=== PATIENT | female | born 1980 | race Caucasian/White ===

== ENCOUNTER → 2016-07-20 | Outpatient (CLI) | payer MEDICAID ==
--- NOTE | 2016-07-20 17:50 | US ---
Complete Obstetric Ultrasound July 20, 2016 at 1416 hours Indication: G2, P1, female. Evaluate size and dates. The estimated gestational age by LMP is 19 we eks and 2 days yielding an EDC of [December 12, 2016]. Comparison: None available. Findings Number: 1. Presentation: Breech. Placental location: Posterior. Cervix: 3.7 cm. Maximum vertical pocket: 4.0 cm. heart rate: 138 bpm. Ovaries: Not visualized today. Biometry: Biparietal diameter: 46 mm = 20 weeks, 1 day. Head circumference: 174 mm = 20 weeks, 0 days. Abdominal circumference: 141 mm = 19 weeks, 4 days. Femur length: 29.9 mm = 19 weeks, 2 days. Humerus length: 28.6 mm = 19 weeks, 2 days. Transcerebellar diameter: 20.2 mm = 19 weeks, 3 days. HC/AC: 1.23 (1.09 - 1.26). FL/BPD: 65%. FL/AC: 21%. Average ultrasound age: 19 weeks, 6 days. EDC based on today's average ultrasound age: [December 08, 2016]. Estimated weight is 294 grams, +/- 43 grams. The estimated weight is at the 56th percent ile based on previous dating. Anatomy Survey: Supratentorial brain: Normal. Posterior fossa: Normal. Spine: Normal. Nuchal fold: Normal. 3.77 mm. Nose and lips: Normal. Facial profile: Normal. Heart: Four-chamber heart. Intact interventricular septum. Cardiac outflow tracts: Normal. Stomach: Normal. Umbilical cord insertion: Normal. Kidneys: Normal, no pyelectasis. Bladder: Normal. Number of cord vessels: Three. Upper extremities: Normal. Lower extremities: Normal. Impressions 1. Living castellanos in breech presentation. Size concordant with dates. The estimated ge stational age by biometry is 19 weeks and 6 days yielding an EDC of December 08, 2016. The estimate d gestational age by LMP is 19 weeks and 2 days. 2. Unremarkable anatomy. No anomalies detected. E:SID/jr
== END ==
LOC: FIMAGING 14:01
PROVIDERS: ATTEND Family Medicine
DX: Z34.82 Encounter for supervision of other normal pregnancy, second trimester (principal); Z3A.19 19 weeks gestation of pregnancy

== ENCOUNTER → 2017-02-04 | Outpatient (CLI) | payer MEDICAID | LOC: FIMAGING 07:27 | PROVIDERS: ATTEND Family Medicine | DX: K76.89 Other specified diseases of liver (principal) ==

== ENCOUNTER 2017-11-07 22:28 | Emergency (ER) | payer MEDICAID ==
--- NOTE | 2017-11-07 22:41 | EDPHY ---
H & P Stated Complaint: hurt her back yesterday now having pain that "bands around" her Time Seen by Provider: 11/07/17 22:37 HPI/ROS: HPI: This is a 37-year-old female who presents with Chief Complaint: hurt her back yesterday now having pain that "bands around" her Location: Quality: Duration: Signs and Symptoms: No bleeding, no radiation, no numbness, no weakness, no tingling, no incontinence, no decreased range of motion, no swelling, no pain, no fever Timing: Severity: Context: Currently on menses. Denies LOC/head injury/neck pain/dizziness/ nausea/vomiting/amnesia. Modifying Factors: Comment: ROS: see HPI Constitutional: No fever, no chills, no weight loss Eyes: No blurred vision Respiratory: No shortness of breath, no cough Cardiovascular: No chest pain Gastrointestinal: No nausea, no vomiting no diarrhea Genitourinary: No dysuria Extremities: No myalgias Neurologic: No weakness, no numbness Skin: No rashes Hematologic: No bruising, no bleeding MEDICAL/SURGICAL/SOCIAL HISTORY: Medical history: Generally healthy. Does not take any regular medications. Surgical history: Denies Social history: CONSTITUTIONAL: awake and alert, no obvious distress HEENT: Atraumatic and normocephalic. NECK: supple, no midline tenderness, flexion 45 degrees, extension 45 degrees, right and left lateral flexion 45 degrees. No meningismus. Cardiovascular: Normal S1/S2, regular rate, regular rhythm, without murmur rub or gallop. PULMONARY/CHEST: Symmetrical and nontender. no crepitus. Clear to auscultation bilaterally. Good air movement. No accessory muscle usage. ABDOMEN: Soft, nondistended, nontender, no ecchymosis. PELVIC: no pain with rocking; bilateral hips flexion 125 degrees, extension 30 degrees, with no pain internal rotation and no pain external rotation. BACK: No midline tenderness, no paraspinous spasm, deep tendon reflexes 2/2, no pain with straight leg raise, No foot drop. Achilles reflexes are equal bilaterally. Able to walk on heels and toes without difficulty. EXTREMITIES: 2/2 pulses, strength 5/5, DIP/PIP/MCP flexion/extension intact with good light touch sensation. no deformities, no clubbing, no cyanosis or edema. NEUROLOGICAL: no focal neuro deficits. GCS 15. Light touch sensation intact. SKIN: Warm and dry, no erythema. no rash. Good capillary refill. Source: Patient Exam Limitations: No limitations - Personal History LMP (Females 10-55): Now Current Tetanus/Diphtheria Vaccine: No Current Tetanus Diphtheria and Acellular Pertussis (TDAP): No - Medical/Surgical History Hx Asthma: No Hx Chronic Respiratory Disease: No Hx Diabetes: No Hx Cardiac Disease: No Hx Renal Disease: No Hx Cirrhosis: No Hx Alcoholism: No Hx HIV/AIDS: No Hx Splenectomy or Spleen Trauma: No Other PMH: denies - Social History Smoking Status: Never smoked Constitutional: Initial Vital Signs Temperature (C) 36.4 C 11/07/17 22:29 Heart Rate 95 11/07/17 22:29 Respiratory Rate 16 11/07/17 22:29 Blood Pressure 108/83 H 11/07/17 22:29 O2 Sat (%) 96 11/07/17 22:29 O2 Delivery Mode Room Air Allergies/Adverse Reactions: No Allergies [NKDA] Allergy (Verified 11/07/17 22:32) Home Medications: Medication Instructions Recorded NK [No Known Home Meds] 07/17/13 Departure - Departure Condition: Good Referrals: Naima Evans MD [Primary Care Provider] - As per Instructions
--- NOTE | 2017-11-07 22:51 | EDPHY ---
H & P Stated Complaint: hurt her back yesterday now having pain that "bands around" her Time Seen by Provider: 11/07/17 22:37 HPI/ROS: HPI CHIEF COMPLAINT: Low back pain HISTORY OF PRESENT ILLNESS: Patient is a 37-year-old female she denies having any significant medical history she presents emergency room with low back pain. She states over the last 24 hr she injured her right back. Complains of pain in the lumbar region paravertebral on the right side. Sometimes wraps around all the way to her abdomen bilaterally. She complains of pain in her epigastric region. She states hard to tell that stems from her back and wraps around to her abdomen. She does state it hurts worse when she takes a deep breath in. Or when she goes to bend over or with truncal axial movements. Denies cough, fever, vomiting. She thinks she may have injured her back yesterday when she was lifting up her kid. Additionally she states that she walked 2 miles insoles in them and felt the pain got worse. Decided come the emergency room as her pain has been wrapping around her abdomen. Became concerned about this. She did take 3 ibuprofen 200 mg prior to arrival is feeling better but still complains of 5/10 pain. Past Medical History: Denies medical history Past Surgical History: Denies recent surgery Social History: Denies daily use of drugs alcohol tobacco. Family History: Noncontributory ROS REVIEW OF SYSTEMS: A comprehensive 10 point review of systems is otherwise negative aside from elements mentioned in the history of present illness. Exam Constitutional appears well nontoxic no acute distress triage nursing summary reviewed, vital signs reviewed, awake/alert. Eyes normal conjunctivae and sclera, EOMI, PERRLA. HENT normal inspection, atraumatic, moist mucus membranes, no epistaxis, neck supple/ no meningismus, no raccoon eyes. Respiratory clear to auscultation bilaterally, normal breath sounds, no respiratory distress, no wheezing. Cardiovascular rate normal, regular rhythm, no murmur, no edema, distal pulses normal. Gastrointestinal soft, non-tender, no rebound, no guarding, normal bowel sounds, no distension, no pulsatile mass. Genitourinary no CVA tenderness. Musculoskeletal back exam: No significant midline tenderness specifically no significant step-offs, no crepitus, no malalignment, however there is mild tender palpation paravertebral along the lumbar spine on the right side, full range of motion, no calf swelling, no tenderness of extremities, no meningismus , good pulses, neurovascularly intact. Skin pink, warm, & dry, no rash, skin atraumatic. Neurologic awake, alert and oriented x 3, AAOx3, moves all 4 extremities equally, motor intact, sensory intact, CN II-XII intact, normal cerebellar, normal vision, normal speech. Psychiatric normal mood/affect. Heme/Lymph/Immune no lymphadenopathy. Differential Diagnosis: Includes but is not limited to in a particular order nerve root compression, annular tear, disc herniation, compression fracture, PE , pneumothorax, referred pain, pancreatitis Medical Decision Making: Plan for this patient x-ray lumbar spine, chest x-ray two view, EKG, check D-dimer due to pleuritic pain, troponin, IV fentanyl 50 mcg for pain control, gentle IV fluids and re-evaluate. Re-evaluation: EKG interpretation by me on record in [employer] system. Impression time of EKG 2312, this is sinus rhythm rate of [address] elevation no ST depression no significant T-wave abnormalities. No signs of cardiac arrhythmia. 1224: Patient feeling much better after IV fentanyl. Resting comfortably no acute distress. Patient's blood work including negative troponin negative D- dimer. EKG shows no acute ischemia. Patient is not having any chest pain or shortness of breath. Main complaint was positional back pain. X-rays have been reviewed chest and lumbar spine. Recommend anti-inflammatory pain medicine, rest, ice, and prednisone to see if this improves her discomfort. Most likely she has musculoskeletal back pain. She has no focal weakness numbness or tingling or saddle anesthesia or red flags for further back pain. Recommend trial of anti-inflammatory pain medicine, steroids, return precautions discussed with her. Additionally she understands to follow up with primary care doctor. Source: Patient - Personal History LMP (Females 10-55): Now Current Tetanus/Diphtheria Vaccine: No Current Tetanus Diphtheria and Acellular Pertussis (TDAP): No - Medical/Surgical History Hx Asthma: No Hx Chronic Respiratory Disease: No Hx Diabetes: No Hx Cardiac Disease: No Hx Renal Disease: No Hx Cirrhosis: No Hx Alcoholism: No Hx HIV/AIDS: No Hx Splenectomy or Spleen Trauma: No Other PMH: denies - Social History Smoking Status: Never smoked Constitutional: Initial Vital Signs Temperature (C) 36.4 C 11/07/17 22:29 Heart Rate 95 11/07/17 22:29 Respiratory Rate 16 11/07/17 22:29 Blood Pressure 108/83 H 11/07/17 22:29 O2 Sat (%) 96 11/07/17 22:29 O2 Delivery Mode Room Air Allergies/Adverse Reactions: No Allergies [NKDA] Allergy (Verified 11/07/17 22:32) Home Medications: Medication Instructions Recorded Hydrocodone/APAP 5/325 [Hornbeak 1 - 2 tab PO Q4H PRN #10 tab 11/08/17 5/325] Ibuprofen [Motrin (*)] 800 mg PO Q6-8PRN #14 tab 11/08/17 predniSONE 60 mg PO DAILY #15 tab 11/08/17 Medical Decision Making - Diagnostics Imaging Results: Imaging Impressions Chest X-Ray 11/07/17 22:57 Impression: Normal. Lumbar Spine X-Ray 11/07/17 22:58 Impression: 1. Facet arthropathy at L5-S1. 2. Moderate amount of stool throughout the colon. - Data Points Laboratory Results: Laboratory Results 11/07/17 23:20 11/07/17 23:20 11/07/17 11/07/17 11/07/17 23:20 23:20 23:20 WBC 11.10 10^3/uL H 10^3/uL (3.80-9.50) RBC 5.01 10^6/uL 10^6/uL (4.18-5.33) Hgb 14.3 g/dL g/dL (12.6-16.3) Hct 41.5 % % (38.0-47.0) MCV 82.8 fL fL (81.5-99.8) MCH 28.5 pg pg (27.9-34.1) MCHC 34.5 g/dL g/dL (32.4-36.7) RDW 12.5 % % (11.5-15.2) Plt Count 266 10^3/uL 10^3/uL (150-400) MPV 10.0 fL fL (8.7-11.7) Neut % (Auto) 68.9 % % (39.3-74.2) Lymph % (Auto) 24.3 % % (15.0-45.0) [place] % (Auto) 5.5 % % (4.5-13.0) Eos % (Auto) 0.6 % % (0.6-7.6) Baso % (Auto) 0.4 % % (0.3-1.7) Nucleat RBC Rel Count 0.0 % % (0.0-0.2) Absolute Neuts (auto) 7.65 10^3/uL H 10^3/uL (1.70-6.50) Absolute Lymphs (auto) 2.70 10^3/uL 10^3/uL (1.00-3.00) Absolute Monos (auto) 0.61 10^3/uL 10^3/uL (0.30-0.80) Absolute Eos (auto) 0.07 10^3/uL 10^3/uL (0.03-0.40) Absolute Basos (auto) 0.04 10^3/uL 10^3/uL (0.02-0.10) Absolute Nucleated RBC 0.00 10^3/uL 10^3/uL (0-0.01) Immature Gran % 0.3 % % (0.0-1.1) Immature Gran # 0.03 10^3/uL 10^3/uL (0.00-0.10) D-Dimer < 0.27 ug/mLFEU ug/mLFEU (0.00-0.50) Sodium 137 mEq/L mEq/L (135-145) Potassium 3.9 mEq/L mEq/L (3.5-5.2) Chloride 102 mEq/L mEq/L (97-110) Carbon Dioxide 22 mEq/l mEq/l (22-31) Anion Gap 13 mEq/L mEq/L (8-16) BUN 18 mg/dL mg/dL (7-23) Creatinine 0.9 mg/dL mg/dL (0.6-1.0) Estimated GFR > 60 Glucose 105 mg/dL H mg/dL (70-100) Calcium 8.8 mg/dL mg/dL (8.5-10.4) Total Bilirubin 0.7 mg/dL mg/dL (0.1-1.4) Conjugated Bilirubin 0.5 mg/dL mg/dL (0.0-0.5) Unconjugated Bilirubin 0.2 mg/dL mg/dL (0.0-1.1) AST 18 IU/L IU/L (14-46) ALT 26 IU/L IU/L (9-52) Alkaline Phosphatase 82 IU/L IU/L (38-126) Troponin I < 0.012 ng/mL ng/mL (0.000-0.034) Total Protein 7.4 g/dL g/dL (6.3-8.2) Albumin 4.1 g/dL g/dL (3.5-5.0) Lipase 120 IU/L IU/L (23-300) Medications Given: Discontinued Medications Sodium Chloride (Ns) 1,000 mls @ 0 mls/hr IV EDNOW ONE; Wide Open PRN Reason: Protocol Stop: 11/07/17 22:58 Last Admin: 11/07/17 23:15 Dose: 1,000 mls Departure - Departure Disposition: Home, Routine, Self-Care Clinical Impression: Back pain Qualifiers: Back pain location: low back pain Chronicity: acute Back pain laterality: unspecified Sciatica presence: without sciatica Qualified Code(s): M54.5 - Low back pain Condition: Good Instructions: Acute Low Back Pain (ED) Additional Instructions: 1. Recommend rest. No strenuous activity. 2. Anti-inflammatory pain medicine. 3. Only take Hornbeak if you have severe pain. 4. Prednisone as prescribed. 5. Return emergency room if you have worsening back pain questions or concerns. Referrals: Naima Evans MD [Primary Care Provider] - As per Instructions Prescriptions: Hydrocodone/APAP 5/325 [Hornbeak 5/325] 1 - 2 tab PO Q4H PRN #10 tab PRN Reason: Pain, Moderate Ibuprofen [Motrin (*)] 800 mg PO Q6-8PRN #14 tab predniSONE 60 mg PO DAILY #15 tab
[2017-11-07] MEDS ORDERED: NS 1,000 ML IV ONE (22:57)
[2017-11-07] MEDS ORDERED: fentaNYL 100 MCG/2 ML INJ IVP ONE (22:58)
--- NOTE | 2017-11-07 23:14 | CPEKG ---
Heart Rate: 96 RR Interval: 625 P-R Interval: 132 QRSD Interval: 86 QT Interval: 348 QTC Interval: 440 P Momence: 0 QRS Momence: 44 T Wave Momence: 25 EKG Severity - NORMAL ECG - EKG Impression: SINUS RHYTHM Electronically Signed By: Adonis Tomlin 08-Nov-2017 06:28:24
[2017-11-07 23:28] LABS: PLATELET COUNT 266 10^3/uL (150-400)
[2017-11-08 00:35] VITALS: BP 112/71
== END 2017-11-08 00:34 | disposition home or self-care (01) ==
DX: S39.92XA Unspecified injury of lower back, initial encounter (principal); E86.9 Volume depletion, unspecified; X58.XXXA Exposure to other specified factors, initial encounter
CPT/HCPCS: J3010

== ENCOUNTER 2018-09-13 15:21 | Emergency (ER) | payer MEDICAID ==
[2018-09-13] MEDS ORDERED: ASPIRIN 81 MG CHEWABLE TAB PO ONE (16:39)
--- NOTE | 2018-09-13 16:59 | EDPHY ---
H & P Time Seen by Provider: 09/13/18 16:29 HPI/ROS: CHIEF COMPLAINT: Chest pain HISTORY OF PRESENT ILLNESS: Patient is a 37-year-old female presents emergency department right-sided chest pain. Pain started at 2:30 a.m.. It lasted for 5 sec at a time. Occurred every 5 min but is now resolved. She had no pleuritic symptoms. She denies shortness of breath. No cough. No recent fevers or chills. No travel. No leg pain or swelling. No family history of clotting disorder or ACS. REVIEW OF SYSTEMS: 10 systems were reveiwed and are negative with the exception of the elements mentioned in the history of present illness. Past Medical/Surgical History: Negative Past surgical history: Negative Social history: Patient denies smoking. Smoking Status: Never smoked Physical Exam: GENERAL: Well-appearing, in no acute distress, alert. HEENT: Eyes normal to inspection, normal pharynx, no signs of dehydration. NECK: Normal, supple. RESPIRATORY: Clear to auscultation bilaterally, no rales, rhonchi or wheezing. CVS: Regular rate and rhythm, no rubs, murmurs, or gallops. Chest wall: Normal appearing. No rash. No tenderness palpation. ABDOMEN: Soft, nontender, nondistended, no organomegaly. BACK: Normal to inspection, no CVA tenderness. SKIN: Normal color, no rash, warm, dry. No pallor. EXTREMITIES: No pedal edema, no calf tenderness, no Homans sign or cords, no joint swelling. NEURO/PSYCH: Alert and oriented, normal mood and affect, normal motor sensory exam. No obvious cranial nerve deficit. Constitutional: Initial Vital Signs Temperature (C) 36.4 C 09/13/18 15:26 Heart Rate 84 09/13/18 15:26 Respiratory Rate 18 09/13/18 15:26 Blood Pressure 133/70 H 09/13/18 15:26 O2 Sat (%) 97 09/13/18 15:26 O2 Delivery Mode Room Air Allergies/Adverse Reactions: No Allergies [NKDA] Allergy (Verified 11/07/17 22:32) Home Medications: Medication Instructions Recorded NK [No Known Home Meds] 09/13/18 Medical Decision Making - Diagnostics Imaging Results: Imaging Impressions Chest X-Ray 09/13/18 16:39 Impression: No significant radiographic abnormality. Specifically, a source for chest pain is not identified. ED Course/Re-evaluation: In the emergency department I discussed possible etiologies with the patient. I answered all her questions. IV was placed. Laboratory studies, EKG and chest x-ray were ordered. Patient was given aspirin orally. EKG shows normal sinus rhythm, [normal rate, normal axis, normal intervals]. There are [no ST or T-wave abnormalities]. [EKG is normal as interpreted by me]. Chest x-ray: No acute disease noted. Laboratory studies were unremarkable. Troponin was negative. Discussed results with the patient. I answered all her questions. She was given with prior to leaving. She will return with worsening symptoms. Differential Diagnosis: My differential includes but is not limited to ACS, acute PR, PE, dissection, aneurysm, pleurisy - Data Points Laboratory Results: Laboratory Results 09/13/18 17:23 09/13/18 17:23 09/13/18 09/13/18 09/13/18 17:23 17:23 17:23 WBC RBC Hgb Hct MCV MCH MCHC RDW Plt Count MPV Neut % (Auto) Lymph % (Auto) [place] % (Auto) Eos % (Auto) Baso % (Auto) Nucleat RBC Rel Count Absolute Neuts (auto) Absolute Lymphs (auto) Absolute Monos (auto) Absolute Eos (auto) Absolute Basos (auto) Absolute Nucleated RBC Immature Gran % Immature Gran # D-Dimer 0.43 ug/mLFEU ug/mLFEU (0.00-0.50) Sodium 138 mEq/L mEq/L (135-145) Potassium 4.1 mEq/L mEq/L (3.5-5.2) Chloride 105 mEq/L mEq/L (97-110) Carbon Dioxide 24 mEq/l mEq/l (22-31) Anion Gap 9 mEq/L mEq/L (6-14) BUN 17 mg/dL mg/dL (7-23) Creatinine 0.8 mg/dL mg/dL (0.6-1.0) Estimated GFR > 60 Glucose 96 mg/dL mg/dL (70-100) Calcium 9.3 mg/dL mg/dL (8.5-10.4) POC Troponin I Beta HCG, Qual NEGATIVE 09/13/18 09/13/18 17:23 17:17 WBC 10.21 10^3/uL H 10^3/uL (3.80-9.50) RBC 5.18 10^6/uL 10^6/uL (4.18-5.33) Hgb 15.0 g/dL g/dL (12.6-16.3) Hct 43.5 % % (38.0-47.0) MCV 84.0 fL fL (81.5-99.8) MCH 29.0 pg pg (27.9-34.1) MCHC 34.5 g/dL g/dL (32.4-36.7) RDW 12.5 % % (11.5-15.2) Plt Count 261 10^3/uL 10^3/uL (150-400) MPV 10.3 fL fL (8.7-11.7) Neut % (Auto) 79.0 % H % (39.3-74.2) Lymph % (Auto) 16.4 % % (15.0-45.0) [place] % (Auto) 3.5 % L % (4.5-13.0) Eos % (Auto) 0.5 % L % (0.6-7.6) Baso % (Auto) 0.4 % % (0.3-1.7) Nucleat RBC Rel Count 0.0 % % (0.0-0.2) Absolute Neuts (auto) 8.07 10^3/uL H 10^3/uL (1.70-6.50) Absolute Lymphs (auto) 1.67 10^3/uL 10^3/uL (1.00-3.00) Absolute Monos (auto) 0.36 10^3/uL 10^3/uL (0.30-0.80) Absolute Eos (auto) 0.05 10^3/uL 10^3/uL (0.03-0.40) Absolute Basos (auto) 0.04 10^3/uL 10^3/uL (0.02-0.10) Absolute Nucleated RBC 0.00 10^3/uL 10^3/uL (0-0.01) Immature Gran % 0.2 % % (0.0-1.1) Immature Gran # 0.02 10^3/uL 10^3/uL (0.00-0.10) D-Dimer Sodium Potassium Chloride Carbon Dioxide Anion Gap BUN Creatinine Estimated GFR Glucose Calcium POC Troponin I 0.00 ng/mL ng/mL (0.00-0.08) Beta HCG, Qual Medications Given: Discontinued Medications Aspirin (Aspirin) 324 mg PO EDNOW ONE Stop: 09/13/18 16:40 Last Admin: 09/13/18 16:42 Dose: 324 mg Point of Care Test Results: Chemistry 09/13/18 17:17 POC Troponin I 0.00 ng/mL ng/mL (0.00-0.08) Departure - Departure Disposition: Home, Routine, Self-Care Clinical Impression: Chest pain Qualifiers: Chest pain type: unspecified Qualified Code(s): R07.9 - Chest pain, unspecified Condition: Good Instructions: Chest Pain (ED) Additional Instructions: Return with increasing pain, shortness of breath or any other concerns. Referrals: Naima Evans MD [Primary Care Provider] - 3-4 days, if not improved
[2018-09-13 17:37] LABS: PLATELET COUNT 261 10^3/uL (150-400)
[2018-09-13 20:02] VITALS: BP 122/62
--- NOTE | 2018-09-13 21:39 | CPEKG ---
Test Reason : OPEN Blood Pressure : / mmHG Vent. Rate : 097 BPM Atrial Rate : 097 BPM P-R Int : 129 ms QRS Dur : 085 ms QT Int : 342 ms P-R-T Axes : 046 042 033 degrees QTc Int : 435 ms Sinus rhythm Confirmed by Dorita Fitzpatrick ([id number]) on 09/13/2018 9:38:34 PM Referred By: PHYSICIAN ED Confirmed By:Dorita Fitzpatrick
== END 2018-09-13 20:13 | disposition home or self-care (01) ==
DX: R07.9 Chest pain, unspecified (principal)
CPT/HCPCS: 84484-ER

== ENCOUNTER 2018-09-19 03:54 | Emergency (ER) | payer MEDICAID ==
[2018-09-19] MEDS ORDERED: NS 1,000 ML IV ONE ×2 (04:07→05:51)
[2018-09-19 04:15] LABS: PLATELET COUNT 271 10^3/uL (150-400)
[2018-09-19] MEDS ORDERED: MAG HYDROX/AL HYDROX/SIMETH 30 ML UDCUP PO ONE ×2 (04:22→07:18)
[2018-09-19] MEDS ORDERED: HYOSCYAMINE SULFATE 0.125 MG TAB PO ONE ×2 (04:22→07:18)
[2018-09-19] MEDS ORDERED: LIDOCAINE 2% VISCOUS 15 ML UDCUP PO ONE ×2 (04:22→07:18)
[2018-09-19 04:25] LABS: INR 1.01 (0.83-1.16); PROTIME(PATIENT) 12.9 SEC (12.0-15.0)
--- NOTE | 2018-09-19 04:28 | EDPHY ---
H & P Stated Complaint: CP, nausea x1 hour Time Seen by Provider: 09/19/18 04:25 HPI/ROS: HPI CHIEF COMPLAINT: Chest pain. HISTORY OF PRESENT ILLNESS: Patient otherwise healthy 37-year-old female, no significant medical history does not take any daily medications except recent use of ibuprofen, presents emergency room with chest pain. Patient states she woke up around 3:00 a.m. With chest discomfort. Mainly across her chest. Describes as burning and pressure sensation. Nonradiating. She reports she was recently in the emergency room on Saturday or close to 6 days ago for chest pain. At that time she had unremarkable cardiac evaluation. Negative D-dimer negative troponin normal EKG. She did follow up with her primary care doctor who diagnosed her with costochondritis and she has been taking ibuprofen 600 mg 3 times a day for this. She reports over the last week she has had frequent chest discomfort. Denies any abdominal pain. She states that she got up this evening around 3:00 a.m. It is now 430 in the morning with some chest discomfort. Associated nausea with this. She cannot go back to sleep and could not get comfortable and this is what prompted her to come to the emergency room. She denies any pleuritic pain. Denies numbness or tingling denies jaw pain neck pain back pain or arm pain. She does report that she has been taking ibuprofen and at times when ibuprofen wears off she gets pain. Feels better when she takes a new dose of ibuprofen. Past Medical History: Denies medical history Past Surgical History: Denies surgical history Social History: She denies drugs alcohol tobacco. Family History: Denies any cardiovascular history in her family. Denies premature . ROS REVIEW OF SYSTEMS: 10 Systems were reviewed and negative with the exception of the elements mentioned in the history of present illness. Exam Constitutional triage nursing summary reviewed, vital signs reviewed, awake/ alert. Eyes normal conjunctivae and sclera, EOMI, PERRLA. HENT normal inspection, atraumatic, moist mucus membranes, no epistaxis, neck supple/ no meningismus, no raccoon eyes. Respiratory clear to auscultation bilaterally, normal breath sounds, no respiratory distress, no wheezing. Cardiovascular chest wall right-sided she does have some mild tender palpation over the right anterior chest wall, rate normal, regular rhythm, no murmur, no edema, distal pulses normal. Gastrointestinal soft, non-tender, no rebound, no guarding, normal bowel sounds, no distension, no pulsatile mass. Genitourinary no CVA tenderness. Musculoskeletal no midline vertebral tenderness, full range of motion, no calf swelling, no tenderness of extremities, no meningismus, good pulses, neurovascularly intact. Skin pink, warm, & dry, no rash, skin atraumatic. Neurologic awake, alert and oriented x 3, AAOx3, moves all 4 extremities equally, motor intact, sensory intact, CN II-XII intact, normal cerebellar, normal vision, normal speech. Psychiatric normal mood/affect. Heme/Lymph/Immune no lymphadenopathy. Differential Diagnosis: Differential diagnosis includes but is not limited to: ACS, atypical chest pain, pneumothorax, pneumonia, pulmonary embolism, aortic dissection, congestive heart failure, tumor, musculoskeletal pain, esophageal pain, GERD, peptic ulcer disease, pancreatitis Medical Decision Making: Plan for this patient IV establishment with IV fluid bolus, basic labs, troponin, EKG, D-dimer, chest x-ray, GI cocktail to see if this improves her discomfort. Re-evaluation: EKG interpretation by me on record in [employer] system. Impression time of EKG sinus rhythm rate of 82 with no signs of acute ischemia. Chest x-ray negative for acute cardiopulmonary disease image interpreted by myself. Troponin 0.00 D-dimer negative. 0627: Patient re-evaluated this time resting comfortably no acute distress she denies any chest pain or shortness of breath. She does state that she feels much better after GI cocktail. She has no chest pain At This time. I do believe her chest discomfort tonight is related to mixture of costochondritis and then subsequently she has been taking rather large amount of ibuprofen for this giving her GI upset. I believe her discomfort tonight is more likely GI upset from ibuprofen. I do recommend she refrain from taking ibuprofen. Stomach acid medication. She is comfortable this plan. Additionally I have discussed return precautions with her she understands return emergency room if develops worsening chest pain, shortness of breath, fever, vomiting, not doing well I have placed a cardiology referral for her on her discharge paperwork. Patient is comfortable with going home she feels comfortable discharge planning. I placed a cardiology referral for her. She denies any chest pain or shortness of breath at this time. Her workup has been unremarkable here in the emergency room with a normal troponin, normal D-dimer, negative EKG. Much improved after GI cocktail. We discussed return precautions she understands. EKG interpretation by me on record in [employer] system. Impression time of EKG 7:08 a.m. This is a repeat EKG sinus rhythm rate of 56, without any signs of acute ischemia. Otherwise unremarkable EKG. 2nd troponin 0.00 Patient 7:19 a.m. Is asking for another GI cocktail. I will give her this. 0730AM: Further discussion the patient does not want to go home she wants to be admitted the hospital. And long discussion with her about how it is safe to go home. Her EKGs are normal. She is requesting 2nd GI cocktail. She reports to me she still has pain. 0738: Long discussed with the patient she is requesting be admitted to the hospital she does not feel comfortable going home. She reports to me she still has chest pain this is most likely GI related. A ordered her 2nd GI cocktail and IV Protonix. However she states that she wants stay today. I did encourage her that she could most likely go home given that her cardiac evaluation is unremarkable and that she is extremely low risk however she reports to me that she wants to be admitted and is more comfortable this. Will consult the hospitalist service for admission Spoke with Dr. Simental who agrees to admit. Source: Patient - Personal History LMP (Females 10-55): 1-7 Days Ago Current Tetanus/Diphtheria Vaccine: No - Medical/Surgical History Hx Asthma: No Hx Chronic Respiratory Disease: No Hx Diabetes: No Hx Cardiac Disease: No Hx Renal Disease: No Hx Cirrhosis: No Hx Alcoholism: No Hx HIV/AIDS: No Hx Splenectomy or Spleen Trauma: No Other PMH: denies - Social History Smoking Status: Never smoked Constitutional: Initial Vital Signs Temperature (C) 36.4 C 09/19/18 03:56 Heart Rate 89 09/19/18 03:56 Respiratory Rate 18 09/19/18 03:56 Blood Pressure 107/77 09/19/18 03:56 O2 Sat (%) 96 09/19/18 03:56 O2 Delivery Mode Room Air Allergies/Adverse Reactions: No Allergies [NKDA] Allergy (Verified 09/19/18 03:58) Home Medications: Medication Instructions Recorded Famotidine [Pepcid 20 MG (*)] 20 mg PO BID #30 tab 09/19/18 Medical Decision Making - Data Points Laboratory Results: Laboratory Results 09/19/18 04:05 09/19/18 04:05 09/19/18 09/19/18 09/19/18 04:15 04:05 04:05 WBC RBC Hgb Hct MCV MCH MCHC RDW Plt Count MPV Neut % (Auto) Lymph % (Auto) Mc[place] % (Auto) Eos % (Auto) Baso % (Auto) Nucleat RBC Rel Count Absolute Neuts (auto) Absolute Lymphs (auto) Absolute Monos (auto) Absolute Eos (auto) Absolute Basos (auto) Absolute Nucleated RBC Immature Gran % Immature Gran # PT INR APTT D-Dimer Sodium 140 mEq/L mEq/L (135-145) Potassium 4.2 mEq/L mEq/L (3.5-5.2) Chloride 108 mEq/L mEq/L (97-110) Carbon Dioxide 24 mEq/l mEq/l (22-31) Anion Gap 8 mEq/L mEq/L (6-14) BUN 14 mg/dL mg/dL (7-23) Creatinine 0.8 mg/dL mg/dL (0.6-1.0) Estimated GFR > 60 Glucose 95 mg/dL mg/dL (70-100) Calcium 9.1 mg/dL mg/dL (8.5-10.4) Magnesium 1.9 mg/dL mg/dL (1.6-2.3) Total Bilirubin 0.7 mg/dL mg/dL (0.1-1.4) Conjugated Bilirubin 0.2 mg/dL mg/dL (0.0-0.5) Unconjugated Bilirubin 0.5 mg/dL mg/dL (0.0-1.1) AST 20 IU/L IU/L (14-46) ALT 22 IU/L IU/L (9-52) Alkaline Phosphatase 63 IU/L IU/L (38-126) POC Troponin I 0.00 ng/mL ng/mL (0.00-0.08) NT-Pro-B Natriuret Pep 32 pg/mL pg/mL (0-125) Total Protein 7.3 g/dL g/dL (6.3-8.2) Albumin 4.1 g/dL g/dL (3.5-5.0) Lipase 119 IU/L IU/L (23-300) Beta HCG, Qual NEGATIVE 09/19/18 09/19/18 04:05 04:05 WBC 8.17 10^3/uL 10^3/uL (3.80-9.50) RBC 5.32 10^6/uL 10^6/uL (4.18-5.33) Hgb 15.2 g/dL g/dL (12.6-16.3) Hct 44.8 % % (38.0-47.0) MCV 84.2 fL fL (81.5-99.8) MCH 28.6 pg pg (27.9-34.1) MCHC 33.9 g/dL g/dL (32.4-36.7) RDW 12.4 % % (11.5-15.2) Plt Count 271 10^3/uL 10^3/uL (150-400) MPV 9.9 fL fL (8.7-11.7) Neut % (Auto) 48.9 % % (39.3-74.2) Lymph % (Auto) 43.1 % % (15.0-45.0) Mcintosh % (Auto) 6.5 % % (4.5-13.0) Eos % (Auto) 1.0 % % (0.6-7.6) Baso % (Auto) 0.4 % % (0.3-1.7) Nucleat RBC Rel Count 0.0 % % (0.0-0.2) Absolute Neuts (auto) 4.00 10^3/uL 10^3/uL (1.70-6.50) Absolute Lymphs (auto) 3.52 10^3/uL H 10^3/uL (1.00-3.00) Absolute Monos (auto) 0.53 10^3/uL 10^3/uL (0.30-0.80) Absolute Eos (auto) 0.08 10^3/uL 10^3/uL (0.03-0.40) Absolute Basos (auto) 0.03 10^3/uL 10^3/uL (0.02-0.10) Absolute Nucleated RBC 0.00 10^3/uL 10^3/uL (0-0.01) Immature Gran % 0.1 % % (0.0-1.1) Immature Gran # 0.01 10^3/uL 10^3/uL (0.00-0.10) PT 12.9 SEC SEC (12.0-15.0) INR 1.01 (0.83-1.16) APTT 27.3 SEC SEC (23.0-38.0) D-Dimer 0.29 ug/mLFEU ug/mLFEU (0.00-0.50) Sodium Potassium Chloride Carbon Dioxide Anion Gap BUN Creatinine Estimated GFR Glucose Calcium Magnesium Total Bilirubin Conjugated Bilirubin Unconjugated Bilirubin AST ALT Alkaline Phosphatase POC Troponin I NT-Pro-B Natriuret Pep Total Protein Albumin Lipase Beta HCG, Qual Medications Given: Discontinued Medications Al Hydroxide/Mg Hydroxide (Maalox Susp) 30 ml PO ONCE ONE Stop: 09/19/18 04:23 Last Admin: 09/19/18 04:35 Dose: 30 ml Hyoscyamine Sulfate (Levsin, Hyomax-Sl) 0.25 mg PO ONCE ONE Stop: 09/19/18 04:23 Last Admin: 09/19/18 04:35 Dose: 0.25 mg Sodium Chloride (Ns) 1,000 mls @ 0 mls/hr IV EDNOW ONE; Wide Open PRN Reason: Protocol Stop: 09/19/18 04:08 Last Admin: 09/19/18 04:14 Dose: 1,000 mls Sodium Chloride (Ns) 1,000 mls @ 0 mls/hr IV ONCE ONE PRN Reason: Wide Open Stop: 09/19/18 05:52 Last Admin: 09/19/18 05:55 Dose: 1,000 mls Lidocaine (Lidocaine 2% Viscous) 15 ml PO ONCE ONE Stop: 09/19/18 04:23 Last Admin: 09/19/18 04:35 Dose: 15 ml Ondansetron HCl (Zofran) 4 mg IVP EDNOW ONE Stop: 09/19/18 05:52 Last Admin: 09/19/18 05:55 Dose: 4 mg Point of Care Test Results: Chemistry 09/19/18 04:15 POC Troponin I 0.00 ng/mL ng/mL (0.00-0.08) Departure - Departure Disposition: [facility] Inpatient Acute Clinical Impression: Chest pain Qualifiers: Chest pain type: unspecified Qualified Code(s): R07.9 - Chest pain, unspecified Gastritis Qualifiers: Gastritis type: unspecified gastritis Chronicity: acute Gastritis bleeding: without bleeding Qualified Code(s): K29.00 - Acute gastritis without bleeding Condition: Fair
[2018-09-19] MEDS ORDERED: ONDANSETRON 4 MG/2 ML VIAL IVP ONE (05:51)
[2018-09-19] MEDS ORDERED: ONDANSETRON 4 MG/2 ML VIAL IVP PRN (08:34)
[2018-09-19] MEDS ORDERED: ONDANSETRON DISINTEGRATING 4 MG TAB PO PRN (08:34)
[2018-09-19] MEDS ORDERED: ACETAMINOPHEN 325 MG TAB PO PRN (08:34)
[2018-09-19] MEDS ORDERED: PANTOPRAZOLE SODIUM 40 MG VIAL IVP SCH (09:00)
--- NOTE | 2018-09-19 12:06 | ECHO ---
[email or web address] [address] [address] Main: [phone] Echocardiography Examination Transthoracic Name: LUPE PIERRE MR#: [id number] Study Date: 09/19/2018 Study Time: 10:42 AM Date of : 1980 Age: 37 year(s) Height: 172.7 cm (68 in.) Weight: 81.19 kg (179 lb.) BSA: 1.95 m2 Gender: Female Examination: Echo Contrast: Image Quality: Adequate Rhythm: Heart Rate: BP: 112 mmHg/68 mmHg Indication: Chest Pain Procedure Staff Referring Physician: Aerologist: Stefania Fowler RDCS Reading Physician: Moy Church MD Requesting Provider: Ordering Physician: Jordan Cruz Indication: Chest Pain Measurements Chambers AV/MV Label Value Normal Value Label Value Normal Value IVSd, 2D 0.7 cm (0.6cm - 1.1cm) AV PGmax 6 mmHg LVDd, 2D 4.4 cm (3.9cm - 5.3cm) AV PGmean 4 mmHg LVDs, 2D 3 cm (2.1cm - 4cm) AV Vmax 1.23 m/s LVEF, 2D 61 % (54% - 74%) RABIA (continuity eq. 2.7 cm2 LVEF, BP 68 % (55% - 70%) Vmax) LVEF, MOD2 68 % (55% - 70%) RABIA D (continuity eq. 2.8 cm2 LVEF, MOD4 68 % (55% - 70%) VTI) LVOT PGmax 4 mmHg MV A Vmax 0.55 m/s LVOT PGmean 3 mmHg MV DT 254 ms LVOT Vmax 1.06 m/s (0.7m/s - 1.1m/s) MV E' lateral 0.15 m/s LVOT Vmean 0.74 m/s MV E' mean 0.13 m/s LVOTd 2 cm (1.8cm - 2cm) MV E' septal 0.11 m/s LVPWd, 2D 0.9 cm MV E Vmax 0.68 m/s RVDd, 2D 2.8 cm (1.9cm - 3.8cm) MV E/A 1.24 LADs, 2D 3.4 cm (2.7cm - 3.8cm) MV E/E' lateral 4.4 LAESV index, BP 28.7 ml/m2 MV E/E' mean 5.23 RA Area 14.7 cm2 MV E/E' septal 6.1 (0.6 - 2.6) Additional Vessels MV PHT 0.08 s Label Value Normal Value MV PHT 75 ms MVA PHT 2.9 cm2 Patient: LUPE PIERRE Study Date: 09/19/2018 Page 1 of 3 10:42 AM AoAsc 2.4 cm TV/PV AoRoot, 2D 2.6 cm (1.4cm - 2.6cm) Label Value Normal Value IVC 1.4 cm (1.2cm - 2.3cm) RA Pressure 5 mmHg RVSP 22 mmHg TR Pmax 17 mmHg TR Vmax 2.09 m/s PV PGmax 3 mmHg PV Vmax, Caliper 0.88 m/s (0.6m/s - 0.9m/s) Conclusions (1) Left ventriular systolic ejection fraction was normal (65%) - normal wall motion (2) Normal RV size and function (3) Normal atrial dimensions (4) Mild mitral regurgitation (5) Trileaflet aortic valve without sclerosis or insufficiency noted (6) Mild tricuspid regurgitation - RVSP was estimated to be 22 mm Hg (7) Grossly normal pulmonic valve (8) Normal ascending aorta measurements (9) No pericardial effusion Findings Left Ventricle: Left ventricle is normal in size. Normal global systolic left ventricular function. The ejection fraction, measured by Simpsons method, is 68 %. Left ventricle wall thickness is normal. There is no regional wall motion abnormalities. Left ventricular diastolic function parameters are normal. IVS: The septum is intact. Right Ventricle: Normal size right ventricle. Right ventricular systolic function is normal. Left Atrium: The left atrium is normal in size. IAS: Normal appearing atrial septum. Right Atrium: The right atrium is normal in size. Mitral Valve: Mitral valve appears structurally normal. Mild mitral regurgitation. No mitral valve stenosis. Aortic Valve: Aortic leaflets are structurally normal. No aortic valve regurgitation. There is no aortic stenosis. Tricuspid Valve: Tricuspid valve leaflets are structurally normal. Mild tricuspid regurgitation. No tricuspid valve stenosis. Right Ventricular systolic pressure is measured at 22 mmHg. Pulmonary artery pressure normal. Pulmonic Valve: Pulmonic leaflets exhibit normal cuspal separation. No pulmonic valve regurgitation is evident. Aorta: The aorta is normal. The aortic root size in 2D measures 2.6 cm. The ascending aorta measures 2.4 cm. Aorta Measurements AoRoot, 2D is 2.6 cm. Pulmonary Artery: Patient: LUPE PIERRE Study Date: 09/19/2018 Page 2 of 3 10:42 AM The pulmonary artery morphology appears normal. IVC: The inferior vena cava is normal in size. The inferior vena cava is normal in size and course. Pericardium: No pericardial effusion. No pleural effusion present. Exam Details Procedure Ordered: Echo Procedure Status: Routine study Image Quality: Adequate Facility Location: Cardiac Echo 1 (No Signature Object) Patient: LUPE PIERRE Study Date: 09/19/2018 Page 3 of 3 10:42 AM [id number]
--- NOTE | 2018-09-19 13:04 | PDGENHP ---
History and Physical - Chief Complaint cp - History of Present Illness Patient otherwise healthy 37-year-old female, no significant medical history does not take any daily medications except recent use of ibuprofen, presents emergency room with chest pain. Patient states she woke up around 3:00 a.m. With chest discomfort. Mainly across her chest. Describes as burning and pressure sensation. Nonradiating. She reports she was recently in the emergency room on Saturday or close to 6 days ago for chest pain. At that time she had unremarkable cardiac evaluation. Negative D-dimer negative troponin normal EKG. She did follow up with her primary care doctor who diagnosed her with costochondritis and she has been taking ibuprofen 600 mg 3 times a day for this. She reports over the last week she has had frequent chest discomfort. Denies any abdominal pain. She denies any pleuritic pain. Denies numbness or tingling denies jaw pain neck pain back pain or arm pain. She does report that she has been taking ibuprofen and at times when ibuprofen wears off she gets pain. In the ER troponin and EKG are unremarkable. She is being admitted for further w /u and management Past Medical History: Denies medical history Past Surgical History: Denies surgical history Social History: She denies drugs alcohol tobacco. Family History: Denies any cardiovascular history in her family. Denies premature . History Information - Allergies/Home Medication List Allergies/Adverse Reactions: No Allergies [NKDA] Allergy (Verified 09/19/18 03:58) I have personally reviewed and updated: medical history, social history - Social History Smoking Status: Never smoked Review of Systems Review of Systems: ROS: 10pt was reviewed & negative except for what was stated in HPI & below Physical Exam Physical Exam: Temp Pulse Resp BP Pulse Ox 36.4 C 63 16 102/53 L 96 09/19/18 03:56 09/19/18 11:57 09/19/18 11:57 09/19/18 11:57 09/19/18 11:57 Constitutional: no apparent distress Eyes: PERRL, EOMI Ears, Nose, Mouth, Throat: moist mucous membranes, hearing normal Respiratory: no respiratory distress, no rales or rhonchi, clear to auscultation Gastrointestinal: normoactive bowel sounds, soft, non-tender abdomen, no palpable masses Genitourinary: no bladder fullness Skin: warm Neurologic: AAOx3 Psychiatric: interacting appropriately, not anxious, not encephalopathic Lymph, Heme, Immunologic: No petechiae Lab Data & Imaging Review 09/19/18 04:05 09/19/18 04:05 WBC 8.17 10^3/uL (3.80-9.50) 09/19/18 04:05 RBC 5.32 10^6/uL (4.18-5.33) 09/19/18 04:05 Hgb 15.2 g/dL (12.6-16.3) 09/19/18 04:05 Hct 44.8 % (38.0-47.0) 09/19/18 04:05 MCV 84.2 fL (81.5-99.8) 09/19/18 04:05 MCH 28.6 pg (27.9-34.1) 09/19/18 04:05 MCHC 33.9 g/dL (32.4-36.7) 09/19/18 04:05 RDW 12.4 % (11.5-15.2) 09/19/18 04:05 Plt Count 271 10^3/uL (150-400) 09/19/18 04:05 MPV 9.9 fL (8.7-11.7) 09/19/18 04:05 Neut % (Auto) 48.9 % (39.3-74.2) 09/19/18 04:05 Lymph % (Auto) 43.1 % (15.0-45.0) 09/19/18 04:05 [place] % (Auto) 6.5 % (4.5-13.0) 09/19/18 04:05 Eos % (Auto) 1.0 % (0.6-7.6) 09/19/18 04:05 Baso % (Auto) 0.4 % (0.3-1.7) 09/19/18 04:05 Nucleat RBC Rel Count 0.0 % (0.0-0.2) 09/19/18 04:05 Absolute Neuts (auto) 4.00 10^3/uL (1.70-6.50) 09/19/18 04:05 Absolute Lymphs (auto) 3.52 10^3/uL (1.00-3.00) H 09/19/18 04:05 Absolute Monos (auto) 0.53 10^3/uL (0.30-0.80) 09/19/18 04:05 Absolute Eos (auto) 0.08 10^3/uL (0.03-0.40) 09/19/18 04:05 Absolute Basos (auto) 0.03 10^3/uL (0.02-0.10) 09/19/18 04:05 Absolute Nucleated RBC 0.00 10^3/uL (0-0.01) 09/19/18 04:05 Immature Gran % 0.1 % (0.0-1.1) 09/19/18 04:05 Immature Gran # 0.01 10^3/uL (0.00-0.10) 09/19/18 04:05 PT 12.9 SEC (12.0-15.0) 09/19/18 04:05 INR 1.01 (0.83-1.16) 09/19/18 04:05 APTT 27.3 SEC (23.0-38.0) 09/19/18 04:05 D-Dimer 0.29 ug/mLFEU (0.00-0.50) 09/19/18 04:05 Sodium 140 mEq/L (135-145) 09/19/18 04:05 Potassium 4.2 mEq/L (3.5-5.2) 09/19/18 04:05 Chloride 108 mEq/L (97-110) 09/19/18 04:05 Carbon Dioxide 24 mEq/l (22-31) 09/19/18 04:05 Anion Gap 8 mEq/L (6-14) 09/19/18 04:05 BUN 14 mg/dL (7-23) 09/19/18 04:05 Creatinine 0.8 mg/dL (0.6-1.0) 09/19/18 04:05 Estimated GFR > 60 09/19/18 04:05 Glucose 95 mg/dL (70-100) 09/19/18 04:05 Calcium 9.1 mg/dL (8.5-10.4) 09/19/18 04:05 Magnesium 1.9 mg/dL (1.6-2.3) 09/19/18 04:05 Total Bilirubin 0.7 mg/dL (0.1-1.4) 09/19/18 04:05 Conjugated Bilirubin 0.2 mg/dL (0.0-0.5) 09/19/18 04:05 Unconjugated Bilirubin 0.5 mg/dL (0.0-1.1) 09/19/18 04:05 AST 20 IU/L (14-46) 09/19/18 04:05 ALT 22 IU/L (9-52) 09/19/18 04:05 Alkaline Phosphatase 63 IU/L (38-126) 09/19/18 04:05 POC Troponin I 0.00 ng/mL (0.00-0.08) 09/19/18 07:09 NT-Pro-B Natriuret Pep 32 pg/mL (0-125) 09/19/18 04:05 Total Protein 7.3 g/dL (6.3-8.2) 09/19/18 04:05 Albumin 4.1 g/dL (3.5-5.0) 09/19/18 04:05 Lipase 119 IU/L (23-300) 09/19/18 04:05 Beta HCG, Qual NEGATIVE 09/19/18 04:05 Assessment & Plan Assessment: #Chest pain (Acute) #Gastritis (Acute) Plan: admit observation likely atypical cp with negative troponin and EKG will obtain a TTE, if thats normal then d/c with f/u with PCP will cont PPI
--- NOTE | 2018-09-19 13:05 | PDDCSUM ---
Discharge Summary Discharge Summary: 37 yo female admitted with cp. negative trop and EKG TTE unremarkable HEART score is 0 cp likely from gastritis started PPI with improvement/resolution of symptoms DDX: #atypical cp #Gastritis Exam: NAD AAOX3 RRR CTA B S/NT/ND MEDS: SEE MED REC TOTAL TIME SPENT ON D/C IS 35 MINS
--- NOTE | 2018-09-19 14:33 | CPEKG ---
Test Reason : OPEN Blood Pressure : / mmHG Vent. Rate : 056 BPM Atrial Rate : 057 BPM P-R Int : 155 ms QRS Dur : 086 ms QT Int : 422 ms P-R-T Axes : 037 041 057 degrees QTc Int : 408 ms Sinus bradycarda with intermittent junctional escape rhythm Low voltage, extremity leads Confirmed by Rudy Hart ([id number]) on 09/19/2018 2:32:32 PM Referred By: Rupert Simental Confirmed By:Rudy Hart
[2018-09-19 14:47] VITALS: BP 125/76
--- NOTE | 2018-09-27 07:56 | CPEKG ---
Test Reason : OPEN Blood Pressure : / mmHG Vent. Rate : 082 BPM Atrial Rate : 083 BPM P-R Int : 135 ms QRS Dur : 090 ms QT Int : 381 ms P-R-T Axes : 022 024 055 degrees QTc Int : 445 ms Sinus rhythm Confirmed by Adonis Tomlin ([id number]) on 09/27/2018 7:55:13 AM Referred By: Rupert Simental Confirmed By:Adonis Tomlin
== END 2018-09-19 14:47 | disposition still patient (30) ==
LOC: UNDOADMOB 06:45
DX: R07.9 Chest pain, unspecified (principal); K29.70 Gastritis, unspecified, without bleeding; M94.0 Chondrocostal junction syndrome [Tietze]
CPT/HCPCS: 84484-ER; 96374; J2405

== ENCOUNTER → 2018-12-19 | Outpatient (CLI) | payer MEDICAID | LOC: FIMAGING 07:55 ==